=== PATIENT | male | born 2000 | race Caucasian/White ===

== ENCOUNTER 2024-11-28 15:44 | Emergency (ER) | payer SELFPAY ==
[2024-11-28] MEDS ORDERED: Lidocaine 1% w/Epinephrine 1:100K 20 ML VIAL ONE (16:52)
[2024-11-28] MEDS ORDERED: Bacitracin 1 PK ONE ×2 (18:14→18:18)
[2024-11-28] MEDS ORDERED: Boostrix 0.5 ML (Tdap) VIAL (>/=7 yrs of age) ONE (18:14)
== END 2024-11-28 18:29 | disposition home or self-care (01) ==
LOC: ERS 15:44
DX: S61.011A Laceration without foreign body of right thumb without damage to nail, initial encounter (principal); Z23 Encounter for immunization; W26.0XXA Contact with knife, initial encounter
CPT/HCPCS: 12042; 90471; 90715